=== PATIENT | male | born 1965 | race African-American/Black ===

== ENCOUNTER 2018-12-02 00:45 | Emergency (ER) | payer MEDICAID ==
[~2018-12-02] VITALS: Ht 165.1 cm; Wt 54.0 kg
[2018-12-02 03:04] LABS: HEMATOCRIT. 35.7 % (42.0-52.0); HEMOGLOBIN. 11.8 g/dL (14.0-18.0); MEAN CORPUSCULAR HEMOGLOBIN 28.9 pg (28.0-32.0); MEAN CORPUSCULAR VOLUME 87.5 fL (80.0-94.0); MEAN PLATELET VOLUME 7.8 fl (7.4-10.4); PLATELET 245 x1000/uL (130-400); RED BLOOD CELL COUNT 4.09 mill/uL (4.7-6.1); RED CELL DISTRIBUTION WIDTH 15.2 % (11.6-14.6)
[2018-12-02 03:08] LABS: CHLORIDE 98 mEq/L (98-107)
[2018-12-02 03:09] LABS: INR 2.1; PROTHROMBIN TIME 20.7 sec (9.1-11.1)
[2018-12-02 05:20] VITALS: BP 115/80
[2018-12-02 07:14] LABS: PLATELET ESTIMATE NORMAL
== END 2018-12-02 06:00 | disposition home or self-care (01) ==
LOC: ER 00:45
DX: Z00.8 Encounter for other general examination (principal); F03.90 Unspecified dementia, unspecified severity, without behavioral disturbance, psychotic disturbance, mood disturbance, and anxiety
CPT/HCPCS: 36415; 99283

== ENCOUNTER 2018-12-04 09:13 | Inpatient (IN) | payer MEDICAID ==
[~2018-12-04] VITALS: Ht 167.6 cm; Wt 51.3 kg
[2018-12-04 10:51] LABS: HEMATOCRIT. 36.8 % (42.0-52.0); HEMOGLOBIN. 12.3 g/dL (14.0-18.0); MEAN CORPUSCULAR HEMOGLOBIN 29.2 pg (28.0-32.0); MEAN CORPUSCULAR VOLUME 87.6 fL (80.0-94.0); MEAN PLATELET VOLUME 8.1 fl (7.4-10.4); PLATELET 255 x1000/uL (130-400); RED CELL DISTRIBUTION WIDTH 15.3 % (11.6-14.6)
[2018-12-04 10:56] LABS: CHLORIDE 98 mEq/L (98-107)
[2018-12-04 11:08] LABS: PROTHROMBIN TIME 20.1 sec (9.1-11.1)
[2018-12-04 11:21] LABS: NUCLEATED RED BLOOD CELLS 1 /100 WBC; PLATELET ESTIMATE NORMAL
[2018-12-04 16:00] VITALS: BP 137/78
[2018-12-04 16:30] VITALS: BP 132/86
[2018-12-04 20:00] VITALS: BP 140/90
[2018-12-05] VITALS: BP 134/93
[2018-12-05] MEDS ORDERED: ATOR20TA65 MT (00:50)
[2018-12-05] MEDS ORDERED: WARF6TAB22 MT (00:50)
[2018-12-05] MEDS ORDERED: SUCR1TAB MT (00:50)
[2018-12-05] MEDS ORDERED: MEMA5TAB7 MT (00:50)
[2018-12-05] MEDS ORDERED: FOLI-43 MT (00:50)
[2018-12-05] MEDS ORDERED: LOSA50TA20 MT (00:50)
[2018-12-05] MEDS ORDERED: TAMS0.4C31 MT (00:50)
[2018-12-05] MEDS ORDERED: FAMO20TA8 MT (00:50)
[2018-12-05] MEDS ORDERED: AMLO10TA80 MT (00:50)
[2018-12-05] MEDS ORDERED: HYDR100T26 MT (00:50)
[2018-12-05] MEDS ORDERED: DONE10TA43 MT (00:50)
[2018-12-05 04:00] VITALS: BP 143/91
[2018-12-05 08:00] VITALS: BP 124/85
[2018-12-05 10:43] LABS: HEMATOCRIT. 37.4 % (42.0-52.0); HEMOGLOBIN. 12.4 g/dL (14.0-18.0); MEAN CORPUSCULAR VOLUME 87.3 fL (80.0-94.0); MEAN PLATELET VOLUME 7.9 fl (7.4-10.4); PLATELET 274 x1000/uL (130-400); RED BLOOD CELL COUNT 4.28 mill/uL (4.7-6.1); RED CELL DISTRIBUTION WIDTH 15.1 % (11.6-14.6)
[2018-12-05 11:53] LABS: PARTIAL THROMBOPLASTIN TIME 29.7 sec (23.4-31.0); PROTHROMBIN TIME 19.6 sec (9.1-11.1)
[2018-12-05 12:00] VITALS: BP 120/87
[2018-12-05] MEDS ORDERED: PHYTONADIONE 5 MG/5ML ORAL SYRINGE PO ONE (13:00)
[2018-12-05 14:01] LABS: PLATELET ESTIMATE NORMAL
[2018-12-05 16:00] VITALS: BP 121/85
[2018-12-05 20:00] VITALS: BP 135/87
[2018-12-06] VITALS (15 sets, daily range): BP systolic 116–151; BP diastolic 79–100
[2018-12-06 10:01] LABS: INR 1.3; PARTIAL THROMBOPLASTIN TIME 30.6 sec (23.4-31.0); PROTHROMBIN TIME 13.1 sec (9.1-11.1)
[2018-12-06 10:06] LABS: BASOPHILS % 0.9 % (0.0-2.0); EOSINOPHILS % 1.6 % (0.0-5.0); HEMATOCRIT. 36.9 % (42.0-52.0); HEMOGLOBIN. 12.1 g/dL (14.0-18.0); LYMPHOCYTES % 20.5 % (20.0-50.0); MEAN CORPUSCULAR HEMOGLOBIN 28.8 pg (28.0-32.0); MEAN CORPUSCULAR VOLUME 87.6 fL (80.0-94.0); MEAN PLATELET VOLUME 8.1 fl (7.4-10.4); MONOCYTES % 8.9 % (2.0-8.0); NEUTROPHILS % 68.1 % (40.0-76.0); PLATELET 296 x1000/uL (130-400); RED BLOOD CELL COUNT 4.21 mill/uL (4.7-6.1); RED CELL DISTRIBUTION WIDTH 15.3 % (11.6-14.6)
[2018-12-06 10:11] LABS: PHOSPHORUS 5.7 mg/dL (2.5-4.9)
[2018-12-06] MEDS ORDERED: DEXTROSE 50% WATER 50ML SYRINGE IV NR (10:50)
[2018-12-06] MEDS: DEXT 5%/0.9% NACL 1,000 ML IV SCH (12:51)
[2018-12-06] MEDS ORDERED: ACETAMINOPHEN 650MG/20.3ML UDC PO PRN (13:45)
[2018-12-06] MEDS ORDERED: SODIUM BICARBONATE 4% (2.4MEQ) 5ML VIAL IV ONE (14:10)
[2018-12-06] MEDS ORDERED: LIDOCAINE HCL 1% 20ML VIAL (Pyxis) INJ ONE ×2 (14:10→15:41)
[2018-12-06] MEDS ORDERED: CEFAZOLIN 1000MG PREMIX 50 ML IV ONE ×2 (14:20→14:31)
[2018-12-06] MEDS ORDERED: FENTANYL CITRATE/PF 50MCG/ML 2ML VIAL IV ONE (14:30)
[2018-12-06] MEDS ORDERED: MIDAZOLAM HCL 5 MG/5 ML VIAL IV ONE (14:30)
[2018-12-06] MEDS ORDERED: MIDAZOLAM HCL 2 MG/2 ML VIAL ONE (14:42)
[2018-12-06] MEDS ORDERED: FENTANYL CITRATE/PF 50MCG/ML 2ML VIAL ONE (14:42)
[2018-12-06] MEDS: CALCIUM ACETATE 667MG CAPSULE PO SCH (17:07)
[2018-12-06] MEDS: FOLIC ACID/VITAMIN B COMP W-C TABLET PO SCH (17:07)
[2018-12-07] VITALS: BP 131/86
[2018-12-07 04:00] VITALS: BP 126/88
[2018-12-07 06:43] LABS: BASOPHILS % 0.6 % (0.0-2.0); EOSINOPHILS % 1.4 % (0.0-5.0); HEMATOCRIT. 34.3 % (42.0-52.0); HEMOGLOBIN. 11.4 g/dL (14.0-18.0); LYMPHOCYTES % 14.5 % (20.0-50.0); MEAN CORPUSCULAR VOLUME 87.4 fL (80.0-94.0); MEAN PLATELET VOLUME 7.8 fl (7.4-10.4); MONOCYTES % 11.6 % (2.0-8.0); NEUTROPHILS % 71.9 % (40.0-76.0); PLATELET 259 x1000/uL (130-400); RED BLOOD CELL COUNT 3.92 mill/uL (4.7-6.1); RED CELL DISTRIBUTION WIDTH 15.4 % (11.6-14.6)
[2018-12-07 08:00] VITALS: BP 152/103
[2018-12-07] MEDS: FOLIC ACID/VITAMIN B COMP W-C TABLET PO SCH (09:25)
[2018-12-07] MEDS: CALCIUM ACETATE 667MG CAPSULE PO SCH ×2 (09:26→12:50)
[2018-12-07 11:10] LABS: PHOSPHORUS 5.5 mg/dL (2.5-4.9)
[2018-12-07] MEDS ORDERED: HEPARIN SODIUM 1,000 UNIT/1ML VIAL IV NR (11:15)
[2018-12-07 12:00] VITALS: BP 146/73
[2018-12-07] MEDS: DEXT 5%/0.9% NACL 1,000 ML IV SCH (12:30)
[2018-12-07 15:55] VITALS: BP 146/78
== END 2018-12-07 17:35 | DRG 466 ==
LOC: ER 09:13 → 6EST 12:40 → ENRESERV 15:31
PROVIDERS: ADMIT Internal Medicine; ATTEND Internal Medicine
PROC: 5A1D70Z Performance of Urinary Filtration, Intermittent, Less than 6 Hours Per Day (ICD-10-PCS; 2018-12-04)
PROC: 5A1D70Z Performance of Urinary Filtration, Intermittent, Less than 6 Hours Per Day (ICD-10-PCS; 2018-12-05)
PROC: 0JH63XZ Insertion of Tunneled Vascular Access Device into Chest Subcutaneous Tissue and Fascia, Percutaneous Approach (ICD-10-PCS; principal; 2018-12-06)
PROC: 02HV33Z Insertion of Infusion Device into Superior Vena Cava, Percutaneous Approach (ICD-10-PCS; 2018-12-06)
PROC: B5181ZA Fluoroscopy of Superior Vena Cava using Low Osmolar Contrast, Guidance (ICD-10-PCS; 2018-12-06)
PROC: 5A1D70Z Performance of Urinary Filtration, Intermittent, Less than 6 Hours Per Day (ICD-10-PCS; 2018-12-06)
PROC: B548ZZA Ultrasonography of Superior Vena Cava, Guidance (ICD-10-PCS; 2018-12-06)
PROC: 5A1D70Z Performance of Urinary Filtration, Intermittent, Less than 6 Hours Per Day (ICD-10-PCS; 2018-12-07)
DX: T82.41XA Breakdown (mechanical) of vascular dialysis catheter, initial encounter (principal); I12.0 Hypertensive chronic kidney disease with stage 5 chronic kidney disease or end stage renal disease; D68.9 Coagulation defect, unspecified; E11.22 Type 2 diabetes mellitus with diabetic chronic kidney disease; E11.51 Type 2 diabetes mellitus with diabetic peripheral angiopathy without gangrene; E44.0 Moderate protein-calorie malnutrition; N18.6 End stage renal disease; D64.9 Anemia, unspecified; E78.5 Hyperlipidemia, unspecified; E87.6 Hypokalemia; Z99.2 Dependence on renal dialysis; F03.90 Unspecified dementia, unspecified severity, without behavioral disturbance, psychotic disturbance, mood disturbance, and anxiety; K21.9 Gastro-esophageal reflux disease without esophagitis; Z82.49 Family history of ischemic heart disease and other diseases of the circulatory system; Z86.73 Personal history of transient ischemic attack (TIA), and cerebral infarction without residual deficits; Y83.8 Other surgical procedures as the cause of abnormal reaction of the patient, or of later complication, without mention of misadventure at the time of the procedure; Y92.89 Other specified places as the place of occurrence of the external cause; Z79.84 Long term (current) use of oral hypoglycemic drugs
CPT/HCPCS: 36415; 36558; 71045; 76937; 77001; 80048; 82962; 83735; 84100; 99285; C1750; C1769; C1887; J0690; J1642; J1644; J2250; J3010; J3430; J3490; J7042

== ENCOUNTER 2019-02-08 08:39 | Emergency (ER) | payer MEDICAID ==
[~2019-02-08] VITALS: Ht 172.7 cm; Wt 54.0 kg
[~2019-02-08 08:39] MED LIST: AMLO10TA80 MT; ATOR20TA65 MT; DONE10TA43 MT; FAMO20TA8 MT; FOLI-43 MT; HYDR100T26 MT; LOSA50TA20 MT; MEMA5TAB7 MT; SUCR1TAB MT; TAMS0.4C31 MT; WARF6TAB22 MT
[2019-02-08 09:22] LABS: BASOPHILS % 1.1 % (0.0-2.0); EOSINOPHILS % 1.7 % (0.0-5.0); HEMATOCRIT. 32.9 % (42.0-52.0); LYMPHOCYTES % 18.8 % (20.0-50.0); MEAN CORPUSCULAR HEMOGLOBIN 29.8 pg (28.0-32.0); MEAN CORPUSCULAR VOLUME 89.2 fL (80.0-94.0); MEAN PLATELET VOLUME 7.6 fl (7.4-10.4); MONOCYTES % 8.3 % (2.0-8.0); NEUTROPHILS % 70.1 % (40.0-76.0); PLATELET 231 x1000/uL (130-400); RED BLOOD CELL COUNT 3.68 mill/uL (4.7-6.1); RED CELL DISTRIBUTION WIDTH 17.6 % (11.6-14.6)
[2019-02-08 09:27] LABS: CHLORIDE 97 mEq/L (98-107)
[2019-02-08 09:30] LABS: INR 1.4; PARTIAL THROMBOPLASTIN TIME 26.1 sec (23.4-31.0); PROTHROMBIN TIME 13.9 sec (9.1-11.1)
[2019-02-08 09:33] LABS: PHOSPHORUS 3.1 mg/dL (2.5-4.9)
[2019-02-08 13:39] VITALS: BP 125/74
== END 2019-02-08 13:45 ==
LOC: ER 08:39 → CANBEDREQ 10:45 → ER 13:45
DX: I12.0 Hypertensive chronic kidney disease with stage 5 chronic kidney disease or end stage renal disease (principal); N18.6 End stage renal disease; K21.9 Gastro-esophageal reflux disease without esophagitis; F03.90 Unspecified dementia, unspecified severity, without behavioral disturbance, psychotic disturbance, mood disturbance, and anxiety; D64.9 Anemia, unspecified; Z98.890 Other specified postprocedural states; Z99.2 Dependence on renal dialysis; Z79.899 Other long term (current) drug therapy
CPT/HCPCS: 36415; 71045; 83735; 84100; 93005; 99284

== ENCOUNTER 2019-02-12 10:28 | Inpatient (IN) | payer MEDICAID ==
[~2019-02-12] VITALS: Ht 177.8 cm; Wt 64.9 kg
[2019-02-12 11:19] LABS: BASOPHILS % 1.4 % (0.0-2.0); EOSINOPHILS % 2.9 % (0.0-5.0); HEMATOCRIT. 27.6 % (42.0-52.0); HEMOGLOBIN. 9.3 g/dL (14.0-18.0); LYMPHOCYTES % 21.9 % (20.0-50.0); MEAN CORPUSCULAR HEMOGLOBIN 30.2 pg (28.0-32.0); MEAN CORPUSCULAR VOLUME 89.4 fL (80.0-94.0); MEAN PLATELET VOLUME 7.4 fl (7.4-10.4); NEUTROPHILS % 64.8 % (40.0-76.0); PLATELET 243 x1000/uL (130-400); RED BLOOD CELL COUNT 3.08 mill/uL (4.7-6.1); RED CELL DISTRIBUTION WIDTH 17.2 % (11.6-14.6)
[2019-02-12 11:27] LABS: CHLORIDE 103 mEq/L (98-107)
[2019-02-12 11:29] LABS: INR 1.7; PROTHROMBIN TIME 16.8 sec (9.6-11.0)
[2019-02-13] MEDS ORDERED: MEDICATION NOT ON FORMULARY EA (Hydralazine Hcl 1 TAB) MT SCH (01:15)
[2019-02-13] MEDS ORDERED: AMLODIPINE 10MG TABLET PO SCH ×2 (01:24→09:00)
[2019-02-13 01:30] VITALS: BP 170/80
[2019-02-13] MEDS ORDERED: EPOETIN ALFA 4000UNITS/ML VIAL SUBCUT SCH (03:00)
[2019-02-13 05:00] VITALS: BP 165/83
[2019-02-13] MEDS: HYDRALAZINE HCL 100MG TABLET PO SCH ×3 (05:42→21:28)
[2019-02-13] MEDS: SUCRALFATE 1G TABLET PO SCH ×4 (06:25→21:27)
[2019-02-13 06:44] LABS: INR 1.8; PARTIAL THROMBOPLASTIN TIME 31.5 sec (23.4-31.0); PROTHROMBIN TIME 17.6 sec (9.6-11.0)
[2019-02-13 06:59] LABS: BASOPHILS % 1.5 % (0.0-2.0); EOSINOPHILS % 2.2 % (0.0-5.0); HEMATOCRIT. 29.3 % (42.0-52.0); HEMOGLOBIN. 9.6 g/dL (14.0-18.0); LYMPHOCYTES % 21.9 % (20.0-50.0); MEAN CORPUSCULAR HEMOGLOBIN 29.5 pg (28.0-32.0); MEAN CORPUSCULAR VOLUME 89.4 fL (80.0-94.0); MONOCYTES % 7.5 % (2.0-8.0); NEUTROPHILS % 66.9 % (40.0-76.0); PLATELET 262 x1000/uL (130-400); RED BLOOD CELL COUNT 3.27 mill/uL (4.7-6.1)
[2019-02-13] MEDS: MEMANTINE HCL 5MG TABLET PO SCH ×2 (08:58→21:27)
[2019-02-13] MEDS ORDERED: LOSARTAN POTASSIUM 50 MG TABLET PO SCH (09:00)
[2019-02-13] MEDS ORDERED: MEDICATION NOT ON FORMULARY EA (Famotidine 1 TAB) MT SCH (09:00)
[2019-02-13] MEDS ORDERED: MEDICATION NOT ON FORMULARY EA (Folic Acid 1 TAB) MT SCH (09:00)
[2019-02-13] MEDS ORDERED: TAMSULOSIN HCL 0.4MG SR CAPSULE PO SCH ×2 (09:00)
[2019-02-13] MEDS ORDERED: MEMANTINE HCL 5MG TABLET PO SCH (09:00)
[2019-02-13] MEDS ORDERED: DONEPEZIL HCL 10MG TABLET PO SCH ×2 (09:00→21:00)
[2019-02-13] MEDS ORDERED: MEDICATION NOT ON FORMULARY EA (Losartan Potassium 1 TAB) MT SCH (09:00)
[2019-02-13] MEDS ORDERED: FOLIC ACID 1MG TABLET PO SCH (09:00)
[2019-02-13 09:10] VITALS: BP 151/69
[2019-02-13 15:50] VITALS: BP 120/84
[2019-02-13 19:55] VITALS: BP 149/83
[2019-02-13 20:00] VITALS: BP 149/83
[2019-02-13] MEDS ORDERED: SUCRALFATE MT SCH (21:00)
[2019-02-13] MEDS ORDERED: FAMOTIDINE 20MG TABLET PO SCH (21:00)
[2019-02-13] MEDS ORDERED: ATORVASTATIN CALCIUM 20MG TABLET PO SCH ×2 (21:00)
== END 2019-02-13 22:25 | DRG 466 ==
LOC: ER 10:28 → 8WST 11:47 → EDBEDREQTM 11:49 → EDBEDREQ 11:49 → ENRESERV 21:35
PROVIDERS: ADMIT Internal Medicine; ATTEND Internal Medicine
PROC: 5A1D70Z Performance of Urinary Filtration, Intermittent, Less than 6 Hours Per Day (ICD-10-PCS; principal; 2019-02-12)
DX: T82.41XA Breakdown (mechanical) of vascular dialysis catheter, initial encounter (principal); I12.0 Hypertensive chronic kidney disease with stage 5 chronic kidney disease or end stage renal disease; D68.9 Coagulation defect, unspecified; N18.6 End stage renal disease; E44.0 Moderate protein-calorie malnutrition; G30.9 Alzheimer's disease, unspecified; F02.80 Dementia in other diseases classified elsewhere, unspecified severity, without behavioral disturbance, psychotic disturbance, mood disturbance, and anxiety; D64.9 Anemia, unspecified; Y71.2 Prosthetic and other implants, materials and accessory cardiovascular devices associated with adverse incidents; Y84.1 Kidney dialysis as the cause of abnormal reaction of the patient, or of later complication, without mention of misadventure at the time of the procedure; E78.5 Hyperlipidemia, unspecified; E87.6 Hypokalemia; I73.9 Peripheral vascular disease, unspecified; K21.9 Gastro-esophageal reflux disease without esophagitis; Z79.01 Long term (current) use of anticoagulants; Z82.49 Family history of ischemic heart disease and other diseases of the circulatory system; Z86.73 Personal history of transient ischemic attack (TIA), and cerebral infarction without residual deficits; Z99.2 Dependence on renal dialysis; Y92.89 Other specified places as the place of occurrence of the external cause; Z79.1 Long term (current) use of non-steroidal anti-inflammatories (NSAID); Z79.899 Other long term (current) drug therapy; Z68.20 Body mass index [BMI] 20.0-20.9, adult
CPT/HCPCS: 36415; 71045; 80048; 82962; 83735; 84100; 93005; 96372; 99285; J0885

== ENCOUNTER 2019-02-26 11:38 | Inpatient (IN) | payer MEDICAID ==
[2019-02-25 20:00] VITALS: BP 132/84
[~2019-02-26] VITALS: Ht 170.2 cm; Wt 53.1 kg
[2019-02-26 12:35] LABS: BASOPHILS % 1.3 % (0.0-2.0); EOSINOPHILS % 2.1 % (0.0-5.0); HEMATOCRIT. 31.8 % (42.0-52.0); HEMOGLOBIN. 10.5 g/dL (14.0-18.0); LYMPHOCYTES % 26.3 % (20.0-50.0); MEAN CORPUSCULAR HEMOGLOBIN 30.1 pg (28.0-32.0); MEAN CORPUSCULAR VOLUME 91.4 fL (80.0-94.0); MEAN PLATELET VOLUME 8.4 fl (7.4-10.4); MONOCYTES % 9.4 % (2.0-8.0); NEUTROPHILS % 60.9 % (40.0-76.0); PLATELET 248 x1000/uL (130-400); RED BLOOD CELL COUNT 3.48 mill/uL (4.7-6.1); RED CELL DISTRIBUTION WIDTH 17.3 % (11.6-14.6)
[2019-02-26 12:39] LABS: CHLORIDE 103 mEq/L (98-107)
[2019-02-26 12:44] LABS: INR 1.6; PROTHROMBIN TIME 16.2 sec (9.6-11.0)
[2019-02-26 18:15] VITALS: BP 125/73
[2019-02-26 20:00] VITALS: BP 132/84
[2019-02-27] VITALS (8 sets, daily range): BP systolic 109–158; BP diastolic 65–100
[2019-02-27 07:48] LABS: BASOPHILS % 1.1 % (0.0-2.0); EOSINOPHILS % 2.2 % (0.0-5.0); HEMATOCRIT. 31.3 % (42.0-52.0); HEMOGLOBIN. 10.5 g/dL (14.0-18.0); LYMPHOCYTES % 25.7 % (20.0-50.0); MEAN CORPUSCULAR HEMOGLOBIN 30.2 pg (28.0-32.0); MEAN CORPUSCULAR VOLUME 90.1 fL (80.0-94.0); MEAN PLATELET VOLUME 7.7 fl (7.4-10.4); MONOCYTES % 9.1 % (2.0-8.0); NEUTROPHILS % 61.9 % (40.0-76.0); PLATELET 286 x1000/uL (130-400); RED BLOOD CELL COUNT 3.48 mill/uL (4.7-6.1)
[2019-02-27] MEDS: AMLODIPINE 10MG TABLET PO SCH (13:28)
[2019-02-27] MEDS: TAMSULOSIN HCL 0.4MG SR CAPSULE PO SCH (13:28)
[2019-02-27] MEDS: MEMANTINE HCL 5MG TABLET PO SCH ×2 (13:28→17:17)
[2019-02-27] MEDS: LOSARTAN POTASSIUM 50 MG TABLET PO SCH (13:29)
[2019-02-27] MEDS: FAMOTIDINE 20MG TABLET PO SCH (13:29)
[2019-02-27] MEDS: HYDRALAZINE HCL 100MG TABLET PO SCH ×2 (14:39→21:16)
[2019-02-27 16:04] LABS: INR 1.7; PROTHROMBIN TIME 17.4 sec (9.6-11.0)
[2019-02-27] MEDS ORDERED: ESCI5SOL2 PO (16:29)
[2019-02-27] MEDS ORDERED: ESCI5TAB10 MT (16:30)
[2019-02-27] MEDS ORDERED: WARFARIN SODIUM 2.5MG TABLET PO NR (18:30)
[2019-02-27] MEDS: DONEPEZIL HCL 10MG TABLET PO SCH (21:15)
[2019-02-27] MEDS: ATORVASTATIN CALCIUM 20MG TABLET PO SCH (21:18)
[2019-02-28] VITALS (7 sets, daily range): BP systolic 112–169; BP diastolic 67–97
[2019-02-28] MEDS: HYDRALAZINE HCL 100MG TABLET PO SCH ×3 (05:05→22:19)
[2019-02-28 07:56] LABS: EOSINOPHILS % 2.4 % (0.0-5.0); HEMATOCRIT. 28.7 % (42.0-52.0); HEMOGLOBIN. 9.5 g/dL (14.0-18.0); LYMPHOCYTES % 20.1 % (20.0-50.0); MEAN CORPUSCULAR HEMOGLOBIN 29.9 pg (28.0-32.0); MEAN PLATELET VOLUME 7.8 fl (7.4-10.4); MONOCYTES % 8.7 % (2.0-8.0); NEUTROPHILS % 67.8 % (40.0-76.0); PLATELET 281 x1000/uL (130-400); RED BLOOD CELL COUNT 3.19 mill/uL (4.7-6.1); RED CELL DISTRIBUTION WIDTH 17.3 % (11.6-14.6)
[2019-02-28 08:01] LABS: INR 2.1; PROTHROMBIN TIME 21.2 sec (9.6-11.0)
[2019-02-28 08:20] LABS: PHOSPHORUS 5.9 mg/dL (2.5-4.9)
[2019-02-28] MEDS ORDERED: CEFAZOLIN 1000MG PREMIX 0 ML IV ONE (08:24)
[2019-02-28] MEDS ORDERED: CEFAZOLIN 1000MG PREMIX 50 ML IV NR (10:00)
[2019-02-28] MEDS: LOSARTAN POTASSIUM 50 MG TABLET PO SCH (12:13)
[2019-02-28] MEDS: AMLODIPINE 10MG TABLET PO SCH (12:14)
[2019-02-28] MEDS: TAMSULOSIN HCL 0.4MG SR CAPSULE PO SCH (12:20)
[2019-02-28] MEDS: FAMOTIDINE 20MG TABLET PO SCH (12:20)
[2019-02-28] MEDS: MEMANTINE HCL 5MG TABLET PO SCH ×2 (12:20→17:44)
[2019-02-28] MEDS: ATORVASTATIN CALCIUM 20MG TABLET PO SCH (20:44)
[2019-02-28] MEDS: DONEPEZIL HCL 10MG TABLET PO SCH (20:44)
[2019-03-01] VITALS: BP 121/85
[2019-03-01 04:00] VITALS: BP 109/70
[2019-03-01] MEDS: HYDRALAZINE HCL 100MG TABLET PO SCH ×3 (05:10→21:34)
[2019-03-01 06:34] LABS: INR 1.3; PROTHROMBIN TIME 12.8 sec (9.6-11.0)
[2019-03-01 06:43] LABS: BASOPHILS % 1.3 % (0.0-2.0); EOSINOPHILS % 2.4 % (0.0-5.0); HEMATOCRIT. 27.5 % (42.0-52.0); HEMOGLOBIN. 9.2 g/dL (14.0-18.0); LYMPHOCYTES % 25.6 % (20.0-50.0); MEAN CORPUSCULAR HEMOGLOBIN 30.1 pg (28.0-32.0); MEAN CORPUSCULAR VOLUME 90.1 fL (80.0-94.0); MONOCYTES % 9.7 % (2.0-8.0); PLATELET 274 x1000/uL (130-400); RED BLOOD CELL COUNT 3.05 mill/uL (4.7-6.1)
[2019-03-01 08:00] LABS: PHOSPHORUS 6.2 mg/dL (2.5-4.9)
[2019-03-01 08:20] VITALS: BP 124/84
[2019-03-01] MEDS: FAMOTIDINE 20MG TABLET PO SCH (09:00)
[2019-03-01] MEDS: TAMSULOSIN HCL 0.4MG SR CAPSULE PO SCH (09:00)
[2019-03-01] MEDS: LOSARTAN POTASSIUM 50 MG TABLET PO SCH (09:00)
[2019-03-01] MEDS: AMLODIPINE 10MG TABLET PO SCH (09:00)
[2019-03-01] MEDS: MEMANTINE HCL 5MG TABLET PO SCH ×2 (09:00→17:00)
[2019-03-01] MEDS ORDERED: FENTANYL CITRATE/PF 50MCG/ML 2ML VIAL ONE (11:15)
[2019-03-01] MEDS ORDERED: MIDAZOLAM HCL 2 MG/2 ML VIAL ONE (11:15)
[2019-03-01] MEDS ORDERED: DIPHENHYDRAMINE 50MG/ML VIAL ONE (11:15)
[2019-03-01 16:00] VITALS: BP 137/74
[2019-03-01 20:00] VITALS: BP 123/90
[2019-03-01] MEDS ORDERED: VANCOMYCIN 1500MG in DEXTROSE 5% WATER 250ML IV NR (21:00)
[2019-03-01] MEDS: DONEPEZIL HCL 10MG TABLET PO SCH (21:34)
[2019-03-01] MEDS: ATORVASTATIN CALCIUM 20MG TABLET PO SCH (21:34)
[2019-03-02] VITALS: BP 139/88
[2019-03-02 04:00] VITALS: BP 142/89
[2019-03-02] MEDS: HYDRALAZINE HCL 100MG TABLET PO SCH ×3 (05:47→21:02)
[2019-03-02 06:38] LABS: BASOPHILS % 0.7 % (0.0-2.0); EOSINOPHILS % 1.6 % (0.0-5.0); HEMATOCRIT. 28.1 % (42.0-52.0); HEMOGLOBIN. 9.4 g/dL (14.0-18.0); LYMPHOCYTES % 13.6 % (20.0-50.0); MEAN CORPUSCULAR HEMOGLOBIN 30.2 pg (28.0-32.0); MONOCYTES % 10.1 % (2.0-8.0); PLATELET 261 x1000/uL (130-400); RED BLOOD CELL COUNT 3.12 mill/uL (4.7-6.1); RED CELL DISTRIBUTION WIDTH 17.1 % (11.6-14.6)
[2019-03-02 06:45] LABS: INR 1.1; PROTHROMBIN TIME 11.5 sec (9.6-11.0)
[2019-03-02 06:50] LABS: PHOSPHORUS 4.3 mg/dL (2.5-4.9)
[2019-03-02 08:00] VITALS: BP 120/83
[2019-03-02] MEDS: AMLODIPINE 10MG TABLET PO SCH (09:15)
[2019-03-02] MEDS: MEMANTINE HCL 5MG TABLET PO SCH ×2 (09:15→16:41)
[2019-03-02] MEDS: TAMSULOSIN HCL 0.4MG SR CAPSULE PO SCH (09:15)
[2019-03-02] MEDS: FAMOTIDINE 20MG TABLET PO SCH (09:15)
[2019-03-02] MEDS: LOSARTAN POTASSIUM 50 MG TABLET PO SCH (09:16)
[2019-03-02 12:00] VITALS: BP 99/62
[2019-03-02 16:00] VITALS: BP 116/76
[2019-03-02 20:41] VITALS: BP 98/65
[2019-03-02] MEDS: ATORVASTATIN CALCIUM 20MG TABLET PO SCH (20:49)
[2019-03-02] MEDS: DONEPEZIL HCL 10MG TABLET PO SCH (20:49)
[2019-03-03 00:41] VITALS: BP 112/58
[2019-03-03 04:12] VITALS: BP 124/82
[2019-03-03] MEDS: HYDRALAZINE HCL 100MG TABLET PO SCH ×3 (05:27→20:33)
[2019-03-03 06:42] LABS: BASOPHILS % 0.6 % (0.0-2.0); LYMPHOCYTES % 15.5 % (20.0-50.0); MEAN CORPUSCULAR VOLUME 89.9 fL (80.0-94.0); MEAN PLATELET VOLUME 8.1 fl (7.4-10.4); MONOCYTES % 10.3 % (2.0-8.0); NEUTROPHILS % 70.6 % (40.0-76.0); PLATELET 237 x1000/uL (130-400); RED CELL DISTRIBUTION WIDTH 17.1 % (11.6-14.6)
[2019-03-03 07:23] LABS: PHOSPHORUS 4.5 mg/dL (2.5-4.9)
[2019-03-03 08:38] VITALS: BP 131/79
[2019-03-03] MEDS: AMLODIPINE 10MG TABLET PO SCH (09:12)
[2019-03-03] MEDS: FAMOTIDINE 20MG TABLET PO SCH (09:12)
[2019-03-03] MEDS: TAMSULOSIN HCL 0.4MG SR CAPSULE PO SCH (09:12)
[2019-03-03] MEDS: MEMANTINE HCL 5MG TABLET PO SCH ×2 (09:12→17:10)
[2019-03-03] MEDS: LOSARTAN POTASSIUM 50 MG TABLET PO SCH (09:12)
[2019-03-03 12:00] VITALS: BP 135/89
[2019-03-03 16:35] VITALS: BP 110/72
[2019-03-03 20:00] VITALS: BP 121/75
[2019-03-03] MEDS: ATORVASTATIN CALCIUM 20MG TABLET PO SCH (20:33)
[2019-03-03] MEDS: DONEPEZIL HCL 10MG TABLET PO SCH (20:33)
[2019-03-03] MEDS ORDERED: EPOETIN ALFA 4000UNITS/ML VIAL SUBCUT SCH (21:00)
[2019-03-04] VITALS: BP 129/78
[2019-03-04 04:00] VITALS: BP 125/80
[2019-03-04] MEDS: HYDRALAZINE HCL 100MG TABLET PO SCH ×3 (06:25→23:05)
[2019-03-04 08:28] VITALS: BP 143/94
[2019-03-04] MEDS: AMLODIPINE 10MG TABLET PO SCH (09:00)
[2019-03-04] MEDS: LOSARTAN POTASSIUM 50 MG TABLET PO SCH (09:00)
[2019-03-04] MEDS: TAMSULOSIN HCL 0.4MG SR CAPSULE PO SCH (09:41)
[2019-03-04] MEDS: MEMANTINE HCL 5MG TABLET PO SCH ×2 (09:41→16:55)
[2019-03-04] MEDS: FAMOTIDINE 20MG TABLET PO SCH (09:41)
[2019-03-04 10:37] LABS: BASOPHILS % 0.9 % (0.0-2.0); HEMATOCRIT. 26.8 % (42.0-52.0); HEMOGLOBIN. 8.9 g/dL (14.0-18.0); LYMPHOCYTES % 17.5 % (20.0-50.0); MEAN CORPUSCULAR HEMOGLOBIN 29.8 pg (28.0-32.0); MEAN CORPUSCULAR VOLUME 89.9 fL (80.0-94.0); MEAN PLATELET VOLUME 8.1 fl (7.4-10.4); MONOCYTES % 7.6 % (2.0-8.0); PLATELET 236 x1000/uL (130-400); RED BLOOD CELL COUNT 2.99 mill/uL (4.7-6.1); RED CELL DISTRIBUTION WIDTH 16.4 % (11.6-14.6)
[2019-03-04 11:29] LABS: PHOSPHORUS 4.4 mg/dL (2.5-4.9)
[2019-03-04 12:50] VITALS: BP 98/53
[2019-03-04] MEDS ORDERED: VANCOMYCIN 500 MG PREMIX 100 ML IV SCH (15:30)
[2019-03-04 16:45] VITALS: BP 115/74
[2019-03-04 20:08] VITALS: BP 109/85
[2019-03-04] MEDS ORDERED: EPOETIN ALFA 4000UNITS/ML VIAL SUBCUT SCH (21:00)
[2019-03-04] MEDS: DONEPEZIL HCL 10MG TABLET PO SCH (23:05)
[2019-03-04] MEDS: ATORVASTATIN CALCIUM 20MG TABLET PO SCH (23:05)
[2019-03-05 00:01] VITALS: BP 124/85
[2019-03-05 04:00] VITALS: BP 134/97
[2019-03-05] MEDS: HYDRALAZINE HCL 100MG TABLET PO SCH ×2 (06:02→16:55)
[2019-03-05 06:33] LABS: PROTHROMBIN TIME 10.7 sec (9.6-11.0)
[2019-03-05 06:40] LABS: BASOPHILS % 0.9 % (0.0-2.0); EOSINOPHILS % 5.3 % (0.0-5.0); HEMATOCRIT. 26.5 % (42.0-52.0); LYMPHOCYTES % 16.9 % (20.0-50.0); MEAN CORPUSCULAR HEMOGLOBIN 30.1 pg (28.0-32.0); MEAN CORPUSCULAR VOLUME 88.7 fL (80.0-94.0); MEAN PLATELET VOLUME 8.2 fl (7.4-10.4); MONOCYTES % 9.4 % (2.0-8.0); NEUTROPHILS % 67.5 % (40.0-76.0); PLATELET 232 x1000/uL (130-400); RED BLOOD CELL COUNT 2.99 mill/uL (4.7-6.1); RED CELL DISTRIBUTION WIDTH 16.3 % (11.6-14.6)
[2019-03-05 08:13] LABS: PHOSPHORUS 4.8 mg/dL (2.5-4.9)
[2019-03-05] MEDS: AMLODIPINE 10MG TABLET PO SCH (09:00)
[2019-03-05] MEDS: FAMOTIDINE 20MG TABLET PO SCH (09:00)
[2019-03-05] MEDS: LOSARTAN POTASSIUM 50 MG TABLET PO SCH (10:07)
[2019-03-05] MEDS: TAMSULOSIN HCL 0.4MG SR CAPSULE PO SCH (10:08)
[2019-03-05] MEDS: MEMANTINE HCL 5MG TABLET PO SCH ×2 (10:09→16:55)
[2019-03-05] MEDS ORDERED: LIDOCAINE HCL 1% 20ML VIAL (Pyxis) INJ ONE (12:22)
[2019-03-05] MEDS ORDERED: MIDAZOLAM HCL 2 MG/2 ML VIAL ONE (12:22)
[2019-03-05] MEDS ORDERED: FENTANYL CITRATE/PF 50MCG/ML 2ML VIAL ONE (12:22)
[2019-03-05] MEDS ORDERED: SODIUM BICARBONATE 4% (2.4MEQ) 5ML VIAL IV ONE (12:22)
[2019-03-05] MEDS ORDERED: HEPARIN 1000 UNITS/ML 10ML ONE (12:52)
[2019-03-05 16:10] VITALS: BP 111/75
[2019-03-05 18:37] VITALS: BP 111/75
[2019-03-05 20:22] VITALS: BP 98/66
== END 2019-03-05 21:15 | DRG 206 ==
LOC: ER 11:38 → 6WST 14:12 → EDBEDREQ 14:17 → ENRESERV 16:25
PROVIDERS: ADMIT Internal Medicine; ATTEND Internal Medicine
PROC: 06PYX3Z Removal of Infusion Device from Lower Vein, External Approach (ICD-10-PCS; principal; 2019-03-05)
PROC: 0JHM3XZ Insertion of Tunneled Vascular Access Device into Left Upper Leg Subcutaneous Tissue and Fascia, Percutaneous Approach (ICD-10-PCS; 2019-03-05)
PROC: 02HV33Z Insertion of Infusion Device into Superior Vena Cava, Percutaneous Approach (ICD-10-PCS; 2019-03-05)
PROC: B5181ZA Fluoroscopy of Superior Vena Cava using Low Osmolar Contrast, Guidance (ICD-10-PCS; 2019-03-05)
DX: T82.868A Thrombosis due to vascular prosthetic devices, implants and grafts, initial encounter (principal); G93.49 Other encephalopathy; D68.9 Coagulation defect, unspecified; E11.22 Type 2 diabetes mellitus with diabetic chronic kidney disease; E11.51 Type 2 diabetes mellitus with diabetic peripheral angiopathy without gangrene; E44.0 Moderate protein-calorie malnutrition; R78.81 Bacteremia; I12.0 Hypertensive chronic kidney disease with stage 5 chronic kidney disease or end stage renal disease; N18.6 End stage renal disease; D64.9 Anemia, unspecified; E78.5 Hyperlipidemia, unspecified; E87.6 Hypokalemia; F02.80 Dementia in other diseases classified elsewhere, unspecified severity, without behavioral disturbance, psychotic disturbance, mood disturbance, and anxiety; G30.9 Alzheimer's disease, unspecified; K21.9 Gastro-esophageal reflux disease without esophagitis; Y73.3 Surgical instruments, materials and gastroenterology and urology devices (including sutures) associated with adverse incidents; Z99.2 Dependence on renal dialysis; Z86.73 Personal history of transient ischemic attack (TIA), and cerebral infarction without residual deficits; Y92.89 Other specified places as the place of occurrence of the external cause; Z82.49 Family history of ischemic heart disease and other diseases of the circulatory system; Z79.01 Long term (current) use of anticoagulants; Z79.899 Other long term (current) drug therapy
CPT/HCPCS: 36415; 36556; 36558; 36589; 71045; 76937; 77001; 80048; 80202; 83735; 83880; 84100; 84145; 84484; 93005; 99285; A6261; C1750; C1752; C1769; C1893; J0690; J0885; J1200; J1642; J1644; J2250; J3010; J3370; J3490; J7040; J7050; J7060